=== PATIENT | female | born 1990 | race Hispanic/Latino ===

== ENCOUNTER 2018-08-07 13:05 | Emergency (ER) | payer SELFPAY ==
[2018-08-07 13:08] VITALS: BMI 35.6
[2018-08-07 13:09] VITALS: RESP 16; O2SAT 99
--- NOTE | 2018-08-07 14:08 | ED PDOC ---
HPI: Abdomen Time Seen by Provider: 08/07/18 13:32 History Per: Patient History/Exam Limitations: no limitations Onset/Duration Of Symptoms: Hrs Outside of [place] travel?: No Current Symptoms Are (Timing): Still Present Additional Complaint(s): 28 yo F who presents to ED for evaluation of stomach pain, nausea and vomiting since 0300am. Pt reports she has had this before, which has been a stomach bug and the only thing that works for her pain is morphine. SHe has taken pepto bismol with no relief. SHe is now dry heaving and unable to tolerate PO. SHe notes pain is in epigastric area. Pt does admit to drinking alcohol yesterday, she states only about 2 drinks, denies daily drinking. Pt also admits to occasional marijuana use. Pt denies fevers, chills, diarrhea, urinary symptoms, recent travel or antibiotic use, known sick contacts. PMD: Dr. Bashir LMP: 1 week ago Abnormal Vaginal Bleeding: No Past Medical History Reviewed: Historical Data, Nursing Documentation, Vital Signs Vital Signs: Last Vital Signs Temp 98.4 F 08/07/18 13:08 Pulse 54 L 08/07/18 13:08 Resp 16 08/07/18 13:08 BP 135/82 08/07/18 13:08 Pulse Ox 99 08/07/18 13:08 - Medical History PMH: No Chronic Diseases - Surgical History Other surgeries: lap band and revision 03/2017 - Family History Family History: States: No Known Family Hx - Social History Current smoker - smoking cessation education provided: No Alcohol: Occasional Drugs: Cannabis - Home Medications Home Medications: Ambulatory Orders Medication Instructions Recorded Aluminum Hydroxide/Magnesium H 30 ml PO TID PRN #160 ml 08/07/18 [Maalox 30 ml] Dicyclomine [Bentyl] 20 mg PO TID PRN #12 tab 08/07/18 Metoclopramide [Reglan] 10 mg PO TID PRN #12 tab 08/07/18 - Allergies Allergies/Adverse Reactions: Allergies Allergy/AdvReac Type Severity Reaction Status Date / Time No Known Allergies Allergy Verified 08/07/18 14:00 Review of Systems Constitutional: Negative for: Fever, Chills Gastrointestinal: Positive for: Nausea, Vomiting, Abdominal Pain. Negative for: Diarrhea, Constipation Genitourinary Female: Negative for: Dysuria, Frequency Physical Exam - Reviewed Nursing Documentation Reviewed: Yes Vital Signs Reviewed: Yes - Physical Exam Comments: GENERAL APPEARANCE: Patient is awake, alert, oriented x 3, in mild painful distress. SKIN: Warm, dry; (-) cyanosis. EYES: (-) conjunctival pallor, (-) scleral icterus. ENMT: Mucous membranes moist. NECK: (-) tenderness, (-) stiffness, (-) lymphadenopathy. CHEST AND RESPIRATORY: (-) rales, (-) rhonchi, (-) wheezes; breath sounds equal bilaterally. HEART AND CARDIOVASCULAR: (-) irregularity; (-) murmur, (-) gallop. ABDOMEN AND GI: (-) distention. Bowel sounds active;(+) mild tenderness in epigastric area, (-) guarding, (-) rebound, (-) palpable masses, (+)multiple small scars from laprascopic incisions (-) CVA tenderness. EXTREMITIES: (-) deformity, (-) edema, (+) distal pulses. NEURO AND PSYCH: Mental status as above; (-) focal findings. - Laboratory Results Result Diagrams: 08/07/18 14:40 08/07/18 14:40 - ECG O2 Sat by Pulse Oximetry: 99 Medical Decision Making Medical Decision Makin:35 initial eval -- gastritis -- labs -- UA, u preg -- toradol, zofran, pepcid, bentyl -- IVF -- re eval 15:"15 on re eval pt continues to complain of pain and nausea, will give her maalox+viscous lidocaine 15:45 on re eval when pt is unaware of being observed she is laying comfortably in stretcher, when evaluated she is moaning and complaining of continued abdominal pain and nausea. Pt reports she doesn't feel any better. Pt again asks for morphine. Mild tenderness in epigastrtic and LUQ, no rebound, no guarding, soft, Will try Reglan IV and re assess [place] [employer] rx search for CHICHO MACKEY PA 08/02/2018 06/21/2018 CLONAZEPAM 1 MG MACRWP21.0 m 30 [facility] [id number] [facility] ([id number]) 1 [employer] [place] 06/25/2018 06/21/2018 CLONAZEPAM 1 MG EIRMON00.0 30 [facility] [id number] ACME (8497) 0 [employer] [place] 05/31/2018 05/31/2018 CLONAZEPAM [address] [facility] [id number] [facility] (8497) 0 [employer] [place] 05/04/2018 05/04/2018 CLONAZEPAM [address] [facility] [id number] [facility] (8497) 0 [employer] [place] 03/27/2018 03/27/2018 CLONAZEPAM [address] [facility] [id number] [facility] (8497) 0 [employer] [place] 17:15 on re eval pt is feeling better, she reports no longer nauseous, tolerating PO liquids, reports stomach is sore, but otherwise abdomen is soft and non tender, labs un remarkable except slight leukocytosis Discussed results, diagnosis, treatment, return precautions and f/u with pt who is understanding, in agreement and stable for dc Disposition - Clinical Impression Clinical Impression: Abdominal pain, Nausea & vomiting - Patient ED Disposition Is Patient to be Admitted: No Counseled Patient/Family Regarding: Studies Performed, Diagnosis, Need For F ollowup, Rx Given - Disposition Referrals: your, doctor [Other] Disposition: Routine/Home Disposition Time: 17:18 Condition: IMPROVED Additional Instructions: The emergency medical care you received today was directed at your acute symptoms. If you were prescribed any medication, please fill it and take as directed. It may take several days for your symptoms to resolve. Return to the Emergency Department if your symptoms worsen, do not improve, or if you have any other problems. Please contact your doctor in 2 days for re-evaluation and follow up / or call one of the physicians/clinics you have been referred to that are listed on the Patient Visit Information form that is included in your discharge packet. Bring any paperwork you were given at discharge with you along with any medications you are taking to your follow up visit. Our treatment cannot replace ongoing medical care by a primary care provider (PCP) outside of the emergency departmen t. Prescriptions: Aluminum Hydroxide/Magnesium H [Maalox 30 ml] 30 ml PO TID PRN #160 ml PRN Reason: Pain, Moderate (4-7) Dicyclomine [Bentyl] 20 mg PO TID PRN #12 tab PRN Reason: stomach pain Metoclopramide [Reglan] 10 mg PO TID PRN #12 tab PRN Reason: Nausea/Vomiting Instructions: Acute Abdomen (Belly Pain), Adult (DC), Nausea and Vomiting, Adult, Viral Gastroenteritis Forms: [facility] (Polish) Print Language: ITALIAN - POA Present On Arrival: None
[2018-08-07] MEDS ORDERED: Sodium Chloride 0.9% 1,000 ML IV SCH (14:15)
[2018-08-07 14:32] LABS: SQUAMOUS EPITHIAL 1 /hpf (0-5); URINE BACTERIA RARE (<OCC); URINE BILIRUBIN NEGATIVE (NEGATIVE); URINE BLOOD NEGATIVE (NEGATIVE); URINE CLARITY SLIGHTY-CLOUDY (Clear); URINE COLOR YELLOW (YELLOW); URINE GLUCOSE (UA) NEG (NEGATIVE); URINE LEUKOCYTE ESTERASE NEG Leu/uL (Negative); URINE PROTEIN 30 mg/dL (NEGATIVE); URINE UROBILINOGEN 0.2-1.0 mg/dL (0.2-1.0)
[2018-08-07 14:47] LABS: BASO % 0.4 % (0.0-2.0); HEMOGLOBIN 12.4 g/dL (12.0-16.0); LYMPH % 8.2 % (20.0-40.0); MEAN CELL VOLUME 89.9 fl (81.0-99.0); MEAN CORPUSCULAR HEMOGLOBIN 29.9 pg (27.0-31.0); MEAN CORPUSCULAR HGB CONC 33.3 g/dL (33.0-37.0); MONO # 0.3 K/uL (0.0-0.8); MONO % 2.8 % (0.0-10.0); NEUT # 10.4 K/uL (1.8-7.0); NEUT % 88.6 % (50.0-75.0); PLATELET COUNT 237 K/uL (130-400); RBC 4.15 Mil/uL (3.80-5.20); RED CELL DISTRIBUTION WIDTH 14.4 % (11.5-14.5); WHITE BLOOD COUNT 11.8 K/uL (4.8-10.8)
[2018-08-07 14:59] LABS: ALB/GLOB RATIO 1.4 (1.0-2.1); ALBUMIN 4.2 g/dL (3.5-5.0); ALT/SGPT 21 U/L (9-52); AST/SGOT 27 U/L (14-36); BLOOD UREA NITROGEN 10 mg/dl (7-17); GFR NON-AFRICAN AMERICAN > 60; LIPASE 44 U/L (23-300)
[2018-08-07] MEDS ORDERED: Alum-Mag Hydrox-Simethicone Susp (30 mL) PO STA (15:15)
[2018-08-07 15:48] LABS: ANISOCYTOSIS SLIGHT; BANDS 1 % (0-2); LARGE PLATELETS PRESENT; LYMPHOCYTE 11 % (20-50); MONOCYTE 2 % (0-10); NEUTROPHIL 86 % (42-75); PLATELET ESTIMATE NORMAL (NORMAL); TEARDROP CELLS SLIGHT; TOTAL CELLS COUNTED 100
[2018-08-07 17:39] VITALS: BP 110/65; PULSE 61; TEMP 98.6
== END 2018-08-07 17:33 | disposition home or self-care (01) ==
LOC: H.ER 13:05
DX: R10.9 Unspecified abdominal pain (principal); R11.2 Nausea with vomiting, unspecified
CPT/HCPCS: 80053; 81003; 81025; 83690; 85025; 96361; 96372; 96374; 96375; 99284; J0500; J1885; J2405; J2765; J7030